=== PATIENT | female | born 1965 | race Two or more races ===

== ENCOUNTER 2018-08-02 05:25 | Inpatient (IN) | payer OTHER ==
[~2018-08-02] VITALS: Ht 162.6 cm; Wt 76.0 kg
[2018-08-02] VITALS (30 sets, daily range): BP systolic 86–115; BP diastolic 50–72; PULSE 54–70; RESP 11–21; Ht 162.6 cm; Wt 76.0 kg
--- NOTE | 2018-08-02 06:27 | PREOPHP ---
DATE OF ADMISSION: 08/02/2018 HISTORY OF PRESENT ILLNESS: This is a 53-year-old lady, 1, para 1. Her last normal menstrua l period was of January 2018. This patient had been bleeding on and off for the last 6 months and at times very heavy. She is having lower abdominal pains and low back pains. She has these very heavy periods for the last 1 year. She is known to have fibroid uterus, so she wanted to have supracervic al hysterectomy, bilateral salpingo-oophorectomy, possible CALEB. The patient never had abnormal Pap s mear before. The procedures were explained to the patient and she understood everything totally. Th e risks, benefits and alternatives were discussed with her as well. PAST MEDICAL HISTORY: No history of TB, asthma. Has history of anemia. ALLERGIES: NO ALLERGIES. PAST SURGICAL HISTORY: She had endoscopy done. She had a cyst removed from her right buttock. FAMILY HISTORY: Mother and brother have high blood pressure. Father has diabetes. GYNECOLOGIC HISTORY: She had menarche at the age of 14, every 28 days interval, 3 to 4 days duration , and moderate in amount. OBSTETRICAL HISTORY: She is 1, para 1 with one normal delivery. REVIEW OF SYSTEMS: CARDIOVASCULAR: No chest pains. RESPIRATORY: No cough. GASTROINTESTINAL: No diarrhea, no vomiting. GENITOURINARY: No dysuria. PHYSICAL EXAMINATION: GENERAL: Reveals a conscious, coherent lady and in no acute distress. VITAL SIGNS: Her blood pressure 120/80, pulse rate 80 per minute, respirations 16 per minute. BREASTS, HEART AND LUNGS: Within normal limits. ABDOMEN: Soft and obese. PELVIC: Revealed the cervix to be firm, uterus about 16 weeks size, and adnexa were negative for mas ses. RECTAL: Confirmed the pelvic findings. EXTREMITIES: No pedal edema. ADMITTING DIAGNOSIS: 1. Fibroid uterus. 2. Menometrorrhagia. 3. Chronic pelvic pain. PLAN: The patient was planned to have the above procedures. Also, this patient knows that with a gonzales pracervical hysterectomy, a Pap smear needs to be done as needed and she is aware of it. Dictated By: FER PHAN/NABOR Conf#: [id number] DID#: [id number]
[2018-08-02] MEDS ORDERED: OMEP20CA16 PO (07:03)
--- NOTE | 2018-08-02 07:12 | PREAC ---
Date/Time of Note Date/Time of Note DATE: 08/02/18 TIME: 07:10 Anesthesia Eval and Record Evaluation Time Pre-Procedure Interview DATE: 08/02/18 TIME: 07:10 Age 53 Sex female NPO: 8 hrs Preoperative diagnosis fibriod uterus Planned procedure CALEB Past Medical History Past Medical History: Includes Cardio: Dyslipidemia GI: GERD Surgery & Anesthesia Issues No known issue Meds Anticoagulation: No Beta Jonh within 24 hr: No Reason Beta Jonh not given: Pt. not on B-Jonh Reported Medications Omeprazole* (Omeprazole*) 20 Mg Capsule.dr, 20 MG PO DAILY, #30 CAP 08/02/18 Meds reviewed: Yes Allergies Coded Allergies: No Known Allergy (Unverified , 08/02/18) Allergies Reviewed: Yes Labs/Studies Labs Reviewed: Reviewed by anesthesiologist test: Negative Studies: ECG Pre-procedure Exam Last vitals Vital Signs Date Temp Pulse Resp B/P (MAP) Pulse Ox O2 O2 Flow FiO2 Time Delivery Rate 08/02/18 98.1 69 16 100/61 97 Room Air 07:08 (74) Airway: Adequate mouth opening, Adequate thyromental dist Mallampati: Mallampati II Teeth: Normal Lung: Normal Heart: Normal ASA Physical Status ASA physical status: 2 Emergency: None Planned Anesthetic General/MAC: ETT Planned Pain Management Parenteral pain med, Local by surgeon Pre-operative Attestations Prior to commencing anesthesia and surgery, the patient was re-evaluated, there was verification of: *The patient's identity *The results of appropriate recent lab work and preoperative vital signs *The above evaluation not changing prior to induction *Anesthetic plan, risk benefits, alternative and complications discussed with patient/family; questions answered; patient/family understands, accepts and wishes to proceed. GUS HOFFMAN CRNA Aug 02, 2018 07:12
[2018-08-02] MEDS ORDERED: FENTAnyl 50 MCG/ML VIAL ONE ×2 (07:17→09:14)
[2018-08-02] MEDS ORDERED: PROPOFOL 20 ML ONE (07:37)
[2018-08-02] MEDS ORDERED: LIDOCAINE 2% (SDV) 5 ML INJ ONE (07:37)
[2018-08-02] MEDS ORDERED: ROCURONIUM 50 MG INJ ONE (07:37)
[2018-08-02] MEDS ORDERED: DEXAMETHASONE 4 MG/ML 5 ML INJ ONE (07:38)
[2018-08-02] MEDS ORDERED: FAMOTIDINE 20 MG INJ ONE (07:38)
[2018-08-02] MEDS ORDERED: CEFAZOLIN 1 GM INJ ONE (07:38)
[2018-08-02] MEDS ORDERED: GLYCOPYRROLATE 0.4 MG INJ ONE ×2 (07:38→07:39)
[2018-08-02] MEDS ORDERED: ONDANSETRON 4 MG INJ ONE (07:38)
[2018-08-02] MEDS ORDERED: NEOSTIGMINE 3 MG/3 ML SYRINGE ONE (07:39)
[2018-08-02] MEDS ORDERED: HYDROmorphONE 2 MG/ML SYG ONE (07:44)
[2018-08-02] MEDS ORDERED: KETOROLAC 30 MG INJ ONE (08:52)
[2018-08-02] MEDS ORDERED: ONDANSETRON 4 MG INJ IV PRN (09:00)
[2018-08-02] MEDS ORDERED: OXYCODONE/ACETAMINOPHEN (5/325) TAB PO PRN ×2 (09:00)
[2018-08-02] MEDS ORDERED: ACETAMINOPHEN 500 MG TAB PO PRN (09:00)
[2018-08-02] MEDS ORDERED: MEPERIDINE 25 MG INJ IV PRN (09:00)
[2018-08-02] MEDS ORDERED: HYDROmorphONE 0.2 MG/ML PCA IV SCH (09:00)
[2018-08-02] MEDS ORDERED: NALOXONE (0.4 MG/ML) INJ IV PRN ×3 (09:00)
[2018-08-02] MEDS ORDERED: HYDROmorphONE 1 MG/5 ML IV SYRINGE IV PRN ×2 (09:00)
--- NOTE | 2018-08-02 09:17 | PAC ---
Date/Time of Note Date/Time of Note DATE: 08/02/18 TIME: 09:15 Post-Anesthesia Notes Post-Anesthesia Note Last documented vital signs Vital Signs Date Temp Pulse Resp B/P (MAP) Pulse Ox O2 O2 Flow FiO2 Time Delivery Rate 08/02/18 98.1 69 16 100/61 97 Room Air 07:08 (74) Activity: WNL Respiratory function: WNL Cardiovascular function: WNL Mental status: Baseline Pain reasonably controlled: Yes Hydration appropriate: Yes Nausea/Vomiting absent: Yes Comments 111/54 Sp02 100% HR 63 RR 14 T 98.5F GUS HOFFMAN ASSISTANT BASKETBALL COACH Aug 02, 2018 09:17
[2018-08-02] MEDS: FENTAnyl 50 MCG/ML VIAL IV PRN ×5 (09:20→10:06)
--- NOTE | 2018-08-02 09:20 | SIPON ---
Date/Time of Note Date/Time of Note DATE: 08/02/18 TIME: 09:15 Operative Report Preoperative Diagnosis FIBROID MENOMETRORRHAGIA CHRONIC PELVIC PAIN PERINEAL RELAXATION Postoperative Diagnosis FIBROID MENOMETRORRHAGIA CHRONIC PELVIC PAIN PERINEAL RELAXATION SEVERE PELVIC AND ABDOMNAL ADHESION Operation/Procedure Performed EXPLORATORY LAPAROTOMY SUPRACERVICAL HYSTERECTOMY BILATERAL SALPINGO OOP HORECTOMY LYSIS OF ADHESION VAGINAL VAULT SUSPENSION Surgeon see signature line assistant manager airside operations DR CORBETT Anesthesia: general Estimated blood loss: 150 - 200 ml's Transfusion Required none Specimen PARTS OF CERVIX BODY OF UTERUS BOTH TUBES AND OVARIES Grafts/Implants none Complications none FER NAGEL MD Aug 02, 2018 09:20
[2018-08-02] MEDS: LACTATED RINGER'S 1,000 ML IV SCH ×3 (10:07→23:23)
[2018-08-02] MEDS: ONDANSETRON 4 MG INJ IV PRN ×2 (11:17→18:39)
--- NOTE | 2018-08-02 13:18 | OPR ---
DATE OF OPERATION: 08/02/2018 PREOPERATIVE DIAGNOSIS: 1. Menometrorrhagia, fibroid uterus. 2. Chronic pelvic pain. 3. Perineal relaxation. POSTOPERATIVE DIAGNOSIS: 1. Menometrorrhagia, fibroid uterus. 2. Chronic pelvic pain. 5. Perineal relaxation. 6. Severe pelvic and abdominal adhesions. SURGEON: Fer Dillard MD CANDLEMAKER: ANESTHESIA: General. OPERATION PERFORMED: Exploratory laparotomy, supracervical hysterectomy and bilateral salpingo-oopho rectomy, lysis of severe pelvic and abdominal adhesions and vaginal vault suspension. OPERATIVE TECHNIQUE: Under general anesthesia, the patient was prepped and draped in the usual fashi on for abdominal surgery. After checking for the effect of the anesthesia, Pfannenstiel incision, 14 cm skin incision was performed. The incision was carried from the skin up to the fascia. Upon open ing the skin up to the fascia, small blood vessels were noted to be oozing and these were all cauteri zed. Fascia was opened transversely followed by splitting the muscles vertical and the peritoneum ve rtically. Upon opening the abdominal cavity, both tubes and ovaries were noted to be deeply attached to both pelvic calvillo and then the uterus was noted to be attached to the omentum and to the bowel an d all these adhesions were lysed by sharp and blunt dissection. Then, the self-retaining retractor w as put in place, the bladder blade was put in place, the bowels were packed away from the operative f ield with the aid of 4 wet lap sponges and the upper blade was put in place. Two 8-inch Kochers were placed, 1 at each paratubal and paraovarian ligament for traction. The uterus was noted to be 18 we eks' size with multiple fibroids noted. Then, the left round ligament was grasped with 2 Kochers and cut. A stick tie with 0 Vicryl was used and tagged. The left broad ligament was skeletonized for t he development of the bladder flap. Then, the left uterotubal ligament was grasped with 2 Tracy cla mps and pulled back with a straight Mara and cut. At first a free tie with 0 Vicryl was used follo wed by Tracy suture. Bleeders were checked, and there was no bleeding noted. Same thing was done o n the right side and then the broad ligament on both sides was skeletonized for the development of th e bladder flap. Then, the left uterine vessels were brought to view. The left uterine vessels were grasped with 2 Tracy clamps and pulled back with a straight Mara and cut. A stick tie with 0 Vicr yl was used on its clamp. Bleeding was checked and there was no bleeding noted. Same thing was done on the right side. Once again, the bladder was from the cervix by sharp and blunt dissect ion and then 2 more Kochers were placed at its paracervical tissue on both sides and on each Mara t he tissue was cut and a stick tie with 0 Vicryl was used. Bleeders were checked, and there was no bl eeding noted. This was done on both sides, left and right side of the paracervical tissue, then the body of the uterus was excised. The remaining cervix was grasped with 2 single tooth tenaculum. Onc e again, the bladder was from the cervix by sharp and blunt dissection. Every time Kochers were put in the bladder was being from the cervix by sharp and blunt dissection, thus the pelvis was noted to be deep, as well as the cervix was noted to be long, about 4 Kochers were placed at each paracervical tissue on the left and right side and on each Mara the tissue was cut and a st ick tie with 0 Vicryl was used. Bleeders were checked, and there was no bleeding noted. Part of the cervix was excised. This was for good visualization of the operative field as well and then again t he cervix was grasped with 2 single tooth tenaculum. Once again, the bladder was from the cervix by sharp and blunt dissection. About every time putting the Mara, the bladder was from the cervix. Four more Kochers were placed at its paracervical tissue on the left and right zonia e and on each Mara the tissue was cut and a stick tie with 0 Vicryl was used. Bleeders were checke d, and there was no bleeding noted. Another piece of cervix was excised. The remaining cervix was gr asped with 2 single tooth tenaculum. The mucosa of the cervix was cauterized. Then, the remaining c ervix was closed in 3 layers using 0 Vicryl continuous suture was used. The right angle of the cervi x was sutured with the right paracervical tissue and after checking for any bleeders in which there w ere none, in turn tied with the right round ligament for vaginal vault suspension. Same thing was do ne on the left side. Bleeders were checked, and there was no bleeding noted. Then, after checking f or any bleeders in which there were none, then the right tube and ovary that was attached to the righ t pelvic wall were released from the adhesions, then the right infundibulopelvic ligament was grasped with 2 Tracy clamps and pulled back with a straight Mara and cut, then a free tie with 0 Vicryl w as used followed by Tracy suture. Bleeders were checked, and there was no bleeding noted. Same thi ng was done on the left side. The left tube and ovary were detached from the left pelvic wall. Blee ders were checked, and there was no bleeding noted. Then, the left infundibulopelvic ligament was gr asped with 2 Tracy clamps and pulled back with a straight Mara and cut. Bleeders were checked, an d there was no bleeding noted. Irrigation was done and once again, all the stumps were checked for a ny bleeders and there was no bleeding noted. After correct sponge count, needle count and instrument count as confirmed by the health technician and craft manager, the abdomen was closed in the usual fashion usi ng 0 Vicryl for the peritoneum, 0 Vicryl for the muscles, for the fascia 0 Vicryl continuous stitch w as used followed by few [id number] sutures for the subcutaneous tissue. It was closed with 3-0 V icryl and the skin was closed with 3-0 Vicryl, subcuticular suture was used. The patient tolerated t he procedure well. Estimated blood loss about 200 mL. Vital signs were stable during and after the procedure. Dictated By: FER PHAN/NABOR Conf#: [id number] DID#: [id number]
[2018-08-02] MEDS: PANTOPRAZOLE 40 MG INJ IV SCH (18:36)
[2018-08-03 02:24] VITALS: BP 111/59; PULSE 78; RESP 18
[2018-08-03] MEDS ORDERED: BISACODYL 10 MG SUPP PR ONE ×2 (06:00→17:00)
[2018-08-03] MEDS ORDERED: MAGNESIUM HYDROXIDE 30ML CUP PO ONE ×2 (06:00→17:00)
[2018-08-03] MEDS: PANTOPRAZOLE 40 MG INJ IV SCH (06:09)
[2018-08-03] MEDS: LACTATED RINGER'S 1,000 ML IV SCH ×2 (06:47→16:52)
[2018-08-03 08:09] VITALS: BP 100/51; PULSE 74; RESP 18
[2018-08-03] MEDS ORDERED: HYDROCODONE/APAP (5/325) TAB PO PRN ×2 (09:30)
[2018-08-03] MEDS ORDERED: IBUPROFEN 800 MG TAB PO PRN (09:30)
[2018-08-03 14:53] VITALS: BP 105/58; PULSE 68; RESP 18
[2018-08-03 19:58] VITALS: BP 141/68; PULSE 65; RESP 18
[2018-08-04 01:48] VITALS: BP 103/59; PULSE 85; RESP 18
[2018-08-04] MEDS ORDERED: MAGNESIUM HYDROXIDE 30ML CUP PO ONE (02:00)
[2018-08-04] MEDS: LACTATED RINGER'S 1,000 ML IV SCH (02:15)
[2018-08-04] MEDS: PANTOPRAZOLE 40 MG INJ IV SCH (06:26)
[2018-08-04 07:20] VITALS: BP 113/67; PULSE 85; RESP 18
--- NOTE | 2018-08-06 09:11 | DS ---
DATE OF ADMISSION: 08/02/2018 DATE OF DISCHARGE: 08/04/2018 HISTORY OF PRESENT ILLNESS: This is a 53-year-old lady, 1. Her last normal menstrual period was in 01/2018. HISTORY OF PRESENT ILLNESS: See dictated history and physical. PHYSICAL EXAMINATION: See dictated history and physical. ADMITTING DIAGNOSES: 1. Fibroid uterus. 2. Menometrorrhagia. 3. Chronic pelvic pain. HOSPITAL COURSE: Patient underwent an exploratory laparotomy, supracervical hysterectomy, bilateral salpingo-oophorectomy, lysis of severe pelvic and abdominal adhesions and vaginal vault suspension. She tolerated the procedure well. She did have good postoperative course. The diet was advanced fro m liquid to general diet. She had good bowel movement postoperatively. She has less pain on the sec ond postoperative day. She was discharged home on the second postoperative day on general diet and a ctivity was restricted. She was counseled. She was instructed. She was given prescription for pain . Hematocrit on discharge was 31.4, hemoglobin 10.5 FINAL DIAGNOSES: 1. Leiomyoma. 2. Menometrorrhagia. 3. Chronic pelvic pain. 4. Perineal relaxation. 5. Severe pelvic and abdominal adhesions. Dictated By: FER PHAN/NABOR Conf#: [id number] DID#: [id number]
== END 2018-08-04 09:55 | disposition home or self-care (01) | DRG 743 ==
LOC: REC 05:25 → MS1 10:39
PROVIDERS: ADMIT Obstetrics & Gynecology; ATTEND Obstetrics & Gynecology
PROC: 0UT20ZZ Resection of Bilateral Ovaries, Open Approach (ICD-10-PCS; 2018-08-02)
PROC: 0UT70ZZ Resection of Bilateral Fallopian Tubes, Open Approach (ICD-10-PCS; 2018-08-02)
PROC: 0UN70ZZ Release Bilateral Fallopian Tubes, Open Approach (ICD-10-PCS; 2018-08-02)
PROC: 0UN20ZZ Release Bilateral Ovaries, Open Approach (ICD-10-PCS; 2018-08-02)
PROC: 0USG0ZZ Reposition Vagina, Open Approach (ICD-10-PCS; 2018-08-02)
PROC: 0UT90ZL Resection of Uterus, Supracervical, Open Approach (ICD-10-PCS; principal; 2018-08-02 07:30)
DX: D25.9 Leiomyoma of uterus, unspecified (principal); N92.1 Excessive and frequent menstruation with irregular cycle; N81.89 Other female genital prolapse; N73.6 Female pelvic peritoneal adhesions (postinfective); K21.9 Gastro-esophageal reflux disease without esophagitis; E78.5 Hyperlipidemia, unspecified; G89.29 Other chronic pain
CPT/HCPCS: 80053; 84702; 85025; 86850; 86900; 86901; 87086; 88305; C9113; J0690; J1100; J1170; J1885; J2405; J2710; J3010; J7120